=== PATIENT | male | born 1995 | race Caucasian/White ===

== ENCOUNTER 2016-07-25 14:26 | Emergency (ER) | payer OTHER ==
[~2016-07-25] VITALS: Ht 175.2 cm; Wt 74.8 kg
[~2016-07-25 14:26] MED LIST: KEFLEX500 MG; MOTRIN400 MG PO; NKHM; SEROQUEL200 MG PO; VICODIN 5/500 505 MG PO; ZOLOFT50 MG PO
[2016-07-25] MEDS ORDERED: KEPPRA500 MG PO (14:53)
== END 2016-07-25 17:05 | disposition home or self-care (01) ==
LOC: ED 14:26
DX: R56.9 Unspecified convulsions (principal); F12.10 Cannabis abuse, uncomplicated

== ENCOUNTER 2017-04-08 10:37 | Emergency (ER) | payer OTHER ==
[~2017-04-08] VITALS: Ht 172.7 cm; Wt 72.6 kg
[~2017-04-08 10:37] MED LIST changes: +KEPPRA500 MG PO
[2017-04-08 11:37] LABS: HEMATOCRIT 43.5 % (42.0-52.0); MEAN CELL VOLUME 87.2 fl (80.0-94.0); MEAN CORPUSCULAR HGB 30.1 pg (27.0-31.0); MEAN CORPUSCULAR HGB CONC 34.5 g/dl (33.0-37.0); MEAN PLATELET VOLUME 9.3 fl (9.6-12.3); PLATELET COUNT AUTOMATED 211 10*3/uL (130-400); RED BLOOD COUNT 4.99 10*6/uL (4.50-5.90)
[2017-04-08 11:56] LABS: PLATELET SUFFICIENCY NORMAL (NORMAL); TOTAL CELLS COUNTED 100 #CELLS
[2017-04-08 11:57] LABS: ALKALINE PHOSPHATASE 77 U/L (45-117); BUN 8 mg/dl (7-24); CHLORIDE 105 mmol/L (98-107); CREATININE 1.12 mg/dL (0.70-1.30); POTASSIUM 3.4 mmol/L (3.5-5.1); SGOT/AST 20 IU/L (3-35); SGPT/ALT 25 U/L (12-78); SODIUM 138 mmol/L (136-145); TOTAL PROTEIN 7.2 gm/dL (6.4-8.2)
[2017-04-08 11:58] LABS: ETHYL ALCOHOL < 3.0 mg/dl (<3)
[2017-04-08 12:23] LABS: BILIRUBIN NEGATIVE (NEGATIVE); BLOOD NEGATIVE (NEGATIVE); CLARITY TURBID (CLEAR); COLOR YELLOW (YELLOW); GLUCOSE 2+ (NEGATIVE); KETONE NEGATIVE (NEGATIVE); LEUKO ESTERASE NEGATIVE (NEGATIVE); NITRITE NEGATIVE (NEGATIVE); PH 5.5 (5.0-9.0); SPECIFIC GRAVITY 1.025 (1.005-1.030); UROBILINOGEN 0.2 E.U./dl (0.2-1.0)
[2017-04-08 12:42] LABS: URINE AMPHETAMINES < 1000 (1000ng/ml); URINE BARBITURATES < 200 (200ng/ml); URINE BENZODIAZEPINES < 200 (200ng/ml); URINE CANNABINOIDS (THC) > 50 (50ng/ml); URINE COCAINE < 300 (300ng/ml); URINE METHADONE < 300 (300ng/ml); URINE OPIATES > 300 (300ng/ml)
[2017-04-08 12:51] LABS: URINE PHENCYCLIDINE < 25 (25ng/ml)
[2017-04-08 12:56] LABS: URIC ACID CRYSTALS 2+
== END 2017-04-08 13:15 | disposition home or self-care (01) ==
LOC: ED 10:37
PROVIDERS: Emergency Medicine
DX: S43.004A Unspecified dislocation of right shoulder joint, initial encounter (principal); G40.909 Epilepsy, unspecified, not intractable, without status epilepticus; Z79.899 Other long term (current) drug therapy; X58.XXXA Exposure to other specified factors, initial encounter; Y93.89 Activity, other specified; Y92.89 Other specified places as the place of occurrence of the external cause; Y99.8 Other external cause status

== ENCOUNTER 2020-03-03 12:13 | Emergency (ER) | payer OTHER | END 2020-03-03 16:10 | disposition home or self-care (01) | LOC: ED 12:13 | DX: R56.9 Unspecified convulsions (principal); Z79.899 Other long term (current) drug therapy ==

== ENCOUNTER 2021-12-17 21:49 | Emergency (ER) | payer OTHER ==
[2021-12-18] MEDS ORDERED: Percocet 325 MG1 TAB PO (01:40)
== END 2021-12-18 02:09 | disposition home or self-care (01) ==
LOC: ED 21:49
DX: S43.004A Unspecified dislocation of right shoulder joint, initial encounter (principal); G40.909 Epilepsy, unspecified, not intractable, without status epilepticus; X58.XXXA Exposure to other specified factors, initial encounter; Y93.89 Activity, other specified; Y92.89 Other specified places as the place of occurrence of the external cause; Y99.8 Other external cause status

== ENCOUNTER 2023-05-14 07:41 | Emergency (ER) | payer SELFPAY ==
[~2023-05-14 07:41] MED LIST changes: +Percocet 325 MG1 TAB PO
[2023-05-14 08:07] LABS: BASO # 0.1 10*3/uL (0.0-0.1); BASO % 0.5 % (0.0-1.0); EOS # 0.1 10*3/uL (0.0-0.4); EOS % 0.6 % (1.0-4.0); HEMATOCRIT 51.7 % (42.0-52.0); LYMPH # 1.8 10*3/uL (1.3-4.4); LYMPH % 16.1 % (27.0-41.0); MEAN CELL VOLUME 89.1 fl (80.0-94.0); MEAN CORPUSCULAR HGB 29.5 pg (27.0-31.0); MEAN CORPUSCULAR HGB CONC 33.1 g/dl (33.0-37.0); MEAN PLATELET VOLUME 9.1 fl (9.6-12.3); MONO # 0.9 10*3/uL (0.1-1.0); MONO % 8.3 % (3.0-9.0); NEUT # 8.1 10*3/uL (2.3-7.9); NEUT % 73.8 % (47.0-73.0); PLATELET COUNT AUTOMATED 279 10*3/uL (130-400); RED CELL DISTRI WIDTH 12.6 % (0-14.5)
[2023-05-14 08:19] LABS: ACT PARTIAL THROMBO TIME 27.3 SECONDS (20.0-32.1)
[2023-05-14 08:26] LABS: BILIRUBIN Negative (Negative); BLOOD 1+ (Negative); CLARITY Clear (Clear); COLOR Yellow (Yellow); GLUCOSE Negative (Negative); KETONE Trace (Negative); LEUKO ESTERASE Negative (Negative); NITRITE Negative (Negative); PH 5.5 (4.5-8.0); UROBILINOGEN 0.2 E.U./dl (0.0-1.0)
[2023-05-14 08:31] LABS: ALKALINE PHOSPHATASE 88 U/L (46-116); BUN 8 mg/dl (9-23); CHLORIDE 105 mmol/L (98-107); LIPASE 103 U/L (12-53); POTASSIUM 3.5 mmol/L (3.4-5.1); SGPT/ALT 23 U/L (5-49); TOTAL PROTEIN 7.9 gm/dL (6.0-8.0)
[2023-05-14 08:33] LABS: URINE AMPHETAMINES Negative (1000ng/ml); URINE BARBITURATES Negative (200ng/ml); URINE BENZODIAZEPINES Negative (200ng/ml); URINE CANNABINOIDS (THC) Positive (50ng/ml); URINE COCAINE Negative (300ng/ml); URINE METHADONE Negative (300ng/ml); URINE OPIATES Negative (300ng/ml); URINE PHENCYCLIDINE Negative (25ng/ml)
[2023-05-14 08:34] LABS: BACTERIA 2+; MUCOUS 2+
[2023-05-14 08:35] LABS: EPITHELIAL CELLS 0-2
[2023-05-14 08:41] LABS: ETHYL ALCOHOL < 3.0 mg/dl (<3)
[2023-05-14] MEDS ORDERED: KEPPRA500 MG PO ×2 (09:13)
== END 2023-05-14 09:29 | disposition home or self-care (01) ==
LOC: ED 07:41
PROVIDERS: Internal Medicine
DX: R56.9 Unspecified convulsions (principal); F32.A Depression, unspecified; Z98.890 Other specified postprocedural states; R10.2 Pelvic and perineal pain

== ENCOUNTER 2023-05-15 08:56 | Emergency (ER) | payer SELFPAY ==
[~2023-05-15] VITALS: Ht 172.7 cm; Wt 81.6 kg
== END 2023-05-15 11:13 | disposition home or self-care (01) ==
LOC: ED 08:56
DX: S43.004A Unspecified dislocation of right shoulder joint, initial encounter (principal); F32.A Depression, unspecified; Z98.890 Other specified postprocedural states; X58.XXXA Exposure to other specified factors, initial encounter; Y93.89 Activity, other specified; Y92.89 Other specified places as the place of occurrence of the external cause; Y99.8 Other external cause status

== ENCOUNTER 2024-03-10 15:32 | Emergency (ER) | payer SELFPAY ==
[~2024-03-10] VITALS: Ht 172.7 cm; Wt 79.4 kg
[2024-03-10 15:42] VITALS: BP 130/100
[2024-03-10] MEDS ORDERED: fentaNYL CITRATE 100 MCG/2 ML VIAL IV ONE (16:15)
[2024-03-10] MEDS ORDERED: ETOMIDATE 20 MG/10 ML VIAL IV ONE (16:15)
== END 2024-03-10 17:45 | disposition home or self-care (01) ==
LOC: ED 15:32 → EDHOLD 19:32
DX: S43.004A Unspecified dislocation of right shoulder joint, initial encounter (principal); F32.A Depression, unspecified; Z53.29 Procedure and treatment not carried out because of patient's decision for other reasons; Z98.890 Other specified postprocedural states; W19.XXXA Unspecified fall, initial encounter; Y93.89 Activity, other specified; Y92.89 Other specified places as the place of occurrence of the external cause; Y99.8 Other external cause status